=== PATIENT | male | born 1970 | race Caucasian/White ===

== ENCOUNTER 2020-05-07 06:43 | Observation (INO) | payer BC ==
--- OUTSIDE RECORDS SUMMARY | 2020-05-07 06:46 | XMS REPORT | Continuity of Care Document ---
:1970 Author Organization [facility] t Address [address] [place] [address] Care Team Providers Name Role Phone Unavailable Unavailable Unavailable Problems Condition Condition Condition Status Onset Resolution Last Treating Co mments Source Name Details Category Date Date Treatment Clinician Date Adult BMI Adult BMI Problem Active [facility] 37.0-37.9 37.0-37.9 Luke s - kg/sq m kg/sq m [facility] Insomnia, Insomnia, Problem Active [facility] unspecifie unspecifie Ina kes - d type d type [facility]oria l [facility] ent Clinics HTN, goal HTN, goal Diagnosis Active [facility] below [facility] - 140/90 140/90 [facility] ent Clinics Obstructiv Obstructiv Diagnosis Active [facility] e sleep e sleep [facility] - apnea apnea Memoria (adult) (adult) l (pediatric (pediatric Ou tpati ) ) ent Clinics Mixed Mixed Problem Active [facility] hyperlipid hyperlipid Ina kes - emia emia [facility]oria l [facility] ent Clinics Anxiety Anxiety Diagnosis [facility] Dependence Dependence Diagnosis Active [facility] on other on other [facility] - enabling enabling Memori a machines machines l and and [facility] devices ent Clinics GERD GERD Problem Active [facility] without without [facility] - esophagiti esophagiti Me moria s s l [facility] ent Clinics Family Family Problem Active [facility] history of history of Ina kes - prostate prostate Memori a cancer cancer l [facility] ent Clinics Tobacco Tobacco Problem Active [facility] use use [facility] - disorder disorder Memori a l [facility] Clinics Adult BMI Adult BMI Problem Active [facility] 40.0-44.9 40.0-44.9 Luke s - kg/sq m kg/sq m [facility] l [facility] ent Clinics 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 Medications Ordered Filled Start Stop Current Ordering Indication Dosage Frequency Signature Comments Components Source Medication Medication Date Date Medication? Clinician (SIG) Name Name Atenolol Atenolol Yes Delvin [address] [facility] Trazodone Trazodone Yes Delvin [address] [facility] HCl HCl Gray at bedtime [facility] - [facility] Chantix Chantix Yes Delvin [address] [facility] Continuing Continuing Gray Ina kes - Month Coleman Month Coleman Memor ia l [facility] ent [facility] Co Q 10 Co Q 10 Yes Delvin [address] [facility] Krill Oil Krill Oil Yes Delvin as [facility] Gray directed [facility] - [facility] Pravastatin Pravastatin Yes Delvin [address] [facility] Sodium Sodium Gray [facility] - [facility] Amitriptyli Amitriptyli Yes Delvin [address] [facility] ne HCl ne HCl [facility] Lisinopril- Lisinopril- Yes Delvin [address] [facility] Hydrochloro Hydrochloro Gray [facility] - thiazide thiazide [facility] l [facility] Lisinopril- Lisinopril- Yes Delvin [address] [facility] Hydrochloro Hydrochloro Gray [facility] - thiazide thiazide [facility] l [facility] Belsomra Belsomra Yes Delvin [address] [facility] at bedtime [facility] - as needed [facility] l [facility] Vitamin B Vitamin B Yes Delvin as [facility] 12 12 Gray directed [facility] CPAP CPAP Yes Delvin nightly [facility] Machine Machine Gray [facility] - [facility] Atenolol Atenolol Yes Delvin [address] [facility] l Outpati ent Clinics Immunizations Ordered Filled Immunization Date Status Comments Sour e Immunization Name Name Traci Aviles 2018-02-[address] [facility] - 00[facility]00 [facility] Pneumovax Pneumovax 2018-02-[address] [facility]00 [facility] Procedures This patient has no known procedures. Encounters Start End Encounter Admission Attending Care Care Encounter Source Date/Time Date/Time Type Type Clinicians Facility Department ID 2020-01-21 2020-01-21 [facility] [id number] [facility] 16:20:00 16:20:00 [facility] Medicine Medicine Outpati ent Clinics 2020-01-19 2020-01-19 [facility] [id number] [facility] 14:31:00 14:31:00 [facility] l Medicine Outpati ent Clinics 2019-08-06 2019-08-06 [facility] [id number] [facility] 08:24:00 08:24:00 [facility] Medicine Outpati ent Clinics 2019-08-04 2019-08-04 [facility] [id number] [address] 10:00:00 10:00:00 [facility] 2019-08-04 2019-08-04 [facility] [id number] [address] 08:35:00 08:35:00 [facility] Medicine Medicine Outpati ent Clinics 2019-08-03 2019-08-03 [facility] [id number] [address] 10:22:00 10:22:00 [facility] Medicine Medicine Outpati ent Clinics 2019-06-08 2019-06-08 [facility] [id number] 14:39:00 14:39:00 [facility] Medicine Medicine Outpati ent Clinics 2019-06-02 2019-06-02 [facility] [id number] 08:15:00 08:15:[address] [facility] Medicine Outpati ent Clinics 2019-04-21 2019-04-21 [facility] [id number] 08:15:00 08:15:[address] [facility] Medicine Outpati ent Clinics 2019-01-27 2019-01-27 [facility] [id number] [address] 08:00:00 08:00:[address] [facility] Medicine Outpati ent Clinics 2019-01-21 2019-01-21 [facility] [id number] [address] 09:18:00 09:18:[address] [facility] Medicine Outpati ent Clinics 2018-10-27 2018-10-27 [facility] [id number] 10:40:00 10:40:[address] [facility] Medicine Outpati ent Clinics 2018-10-23 2018-10-23 [facility] [id number] 10:30:00 10:30:[address] [facility] Medicine Outpati ent Clinics 2018-06-03 2018-06-03 [facility] [id number] 13:45:00 13:45:[address] [facility] Medicine Outpati ent Clinics 2018-02-11 2018-02-11 [facility] [id number] 11:00:00 11:00:[address] [facility] Medicine Outpati ent Clinics Results This patient has no known results.
[2020-05-07 07:02] LABS: Absolute Lymphocytes (CBC) 1.6 K/uL (0.7-4.9); Basophils % 0.6 % (0-1.3); Hematocrit 43.7 % (39.6-49.0); MPV 8.1 fL (7.6-11.3); RBC Red Blood Cell Count 5.03 M/uL (4.33-5.43)
[2020-05-07 07:19] LABS: Potassium 3.5 mmol/L (3.5-5.1)
[2020-05-07 07:38] LABS: Protime INR 0.94
[2020-05-07] MEDS ORDERED: NA CHLORIDE 0.9% 1,000 ML ONE (07:40)
[2020-05-07 07:44] LABS: ALT/SGPT 63 U/L (12-78); AST/SGOT 25 U/L (15-37); Albumin 3.6 g/dL (3.4-5.0); Alkaline Phosphatase 81 U/L (45-117); Bilirubin Direct < 0.1 mg/dL (0-0.2); Bilirubin Total 0.3 mg/dL (0.2-1.0); Magnesium 2.1 mg/dL (1.8-2.4); NT PRO-BNP 13 pg/mL (<125); Protein, Total 7.1 g/dL (6.4-8.2); Troponin (Emerg Dept Use Only) < 0.02 ng/mL (0.0-0.045)
[2020-05-07 07:46] LABS: Platelet Estimate ADEQ
[2020-05-07 07:47] LABS: Blood Morphology Comment NOT SEEN (NOT SEEN)
--- NOTE | 2020-05-07 08:14 | RAD REPORT ---
EXAM DESCRIPTION: CT - Head Brain Wo Cont - 05/07/2020 7:49 am CLINICAL HISTORY: Dizziness COMPARISON: None TECHNIQUE: Computed axial tomography of the head was obtained. IV contrast was not requested. All CT scans are performed using dose optimization technique as appropriate and may include automated exposure control or mA/KV adjustment according to patient size. FINDINGS: An intracranial bleed is not seen . The ventricles are normal in caliber. No extra-axial fluid collection is noted. Mild cerebellar tonsillar ectopia Fluid within the sinuses/ mastoids is not seen. IMPRESSION: No acute intracranial abnormality is seen. If patient's symptoms persist MRI of the bra in would be recommended.
--- NOTE | 2020-05-07 09:26 | RAD REPORT ---
EXAM DESCRIPTION: Keven Single View05/07/2020 8:07 am CLINICAL HISTORY: Syncope COMPARISON: 2016 FINDINGS: The lungs appear clear of acute infiltrate. The heart is normal size IMPRESSION: No acute abnormalities displayed
--- NOTE | 2020-05-07 10:35 | ER ---
Nurse's Notes [facility] Name: Corey Zamarripa Age: 50 yrs Sex: Male : 1970 Arrival Date: 05/07/2020 Time: 06:47 Bed 5 Private MD: Diagnosis: Syncope and collapse;Other chest pain;Essential (primary) hypertension;Tobacco use Presentation: 05/07 06:47 Chief complaint: EMS states: he has syncopal episode today \T\ 0600H while he was walking mg2 at home, felt dizzy and lightheaded initially and passed out, fell and hit his head on the frame. BGL- 140. he is complaining of pain in the head and left knee. Coronavirus screen: Client denies travel out of the [place] in the last 14 days. At this time, the client does not indicate any symptoms associated with coronavirus-19. Ebola Screen: No symptoms or risks identified at this time. Initial Sepsis Screen: Does the patient meet any 2 criteria? No. Patient's initial sepsis screen is negative. Does the patient have a suspected source of infection? No. Patient's initial sepsis screen is negative. Risk Assessment: Do you want to hurt yourself or someone else? Patient reports no desire to harm self or others. Onset of symptoms was May 03, 2020. 06:47 Method Of Arrival: EMS: [place] [id number] 06:47 Acuity: GAUDENCIO 3 mg2 Historical: - Allergies: 06:51 No Known Allergies; mg2 - Home Meds: 06:51 atenolol 25 mg Oral tab 1 tab 2 times per day [Active]; lisinopril 10 mg Oral tab 1 tab mg2 once daily [Active]; Pravachol 20 mg Oral tab 1 tab once daily [Active]; - PMHx: 06:51 Hyperlipidemia; Hypertension; mg2 - Immunization history:: Flu vaccine is up to date. - Social history:: Smoking status: Patient reports the use of cigarette tobacco products, smokes one-half pack cigarettes per day, Patient uses alcohol, Patient/guardian denies using street drugs, IV drugs. - Family history:: not pertinent. Screenin:55 Abuse screen: Denies threats or abuse. Denies injuries from another. Nutritional rr5 screening: No deficits noted. Tuberculosis screening: No symptoms or risk factors identified. Fall Risk IV access (20 points). Total Hogan Fall Scale indicates No Risk (0-24 pts). Assessment: 07:20 Reassessment: Received VO from Dr Ferguson for a cardiac workup, CT head/brain without sv contrast, NS\T\ 125 mls/hr. 07:25 General: Appears in no apparent distress. uncomfortable, Behavior is calm, cooperative, em appropriate for age, Reports being anxious. Pain: Complains of pain in right foot and medial aspect of left knee Pain currently is 4 out of 10 on a pain scale. Neuro: Level of Consciousness is awake, alert, obeys commands, Oriented to person, place, time, situation, Appropriate for age Reports dizziness. Cardiovascular: Capillary refill < 3 seconds Patient's skin is warm and dry. Rhythm is sinus rhythm. Respiratory: Reports shortness of breath on exertion Airway is patent Respiratory effort is even, unlabored, Respiratory pattern is regular, symmetrical. GI: Patient currently denies nausea. Derm: Skin is intact, is healthy with good turgor, Skin is pink, warm \T\ dry. Bruising that is dark purple, on medial aspect of left knee. Musculoskeletal: 07:44 Reassessment: pt wheeled to CT via stretcher. em 08:23 Reassessment: US recreation specialist and is unable to come out for US of gallbladder per Radiology. ss Dr. Turner notified. 08:41 Reassessment: Patient appears in no apparent distress at this time. Patient and/or em family updated on plan of care and expected duration. Pain level reassessed. Patient is alert, oriented x 3, equal unlabored respirations, skin warm/dry/pink. 10:00 Reassessment: Patient appears in no apparent distress at this time. Patient and/or em family updated on plan of care and expected duration. Pain level reassessed. Patient is alert, oriented x 3, equal unlabored respirations, skin warm/dry/pink. 11:00 Reassessment: Patient appears in no apparent distress at this time. Patient and/or em family updated on plan of care and expected duration. Pain level reassessed. Patient is alert, oriented x 3, equal unlabored respirations, skin warm/dry/pink. 12:00 Reassessment: Patient appears in no apparent distress at this time. Patient and/or em family updated on plan of care and expected duration. Pain level reassessed. Patient is alert, oriented x 3, equal unlabored respirations, skin warm/dry/pink. 13:07 Reassessment: Patient appears in no apparent distress at this time. Patient and/or em family updated on plan of care and expected duration. Pain level reassessed. Patient is alert, oriented x 3, equal unlabored respirations, skin warm/dry/pink. Patient states feeling better. 14:44 Reassessment: Dr. Shine at bedside. em Vital Signs: 06:47 BP 108 / 72; Pulse 80; Resp 18; Temp 97.1; Pulse Ox 94% on R/A; Weight 117.93 kg; mg2 Height 5 ft. 9 in. (175.26 cm); Pain 4/10; 07:12 BP 105 / 73; Pulse 81; Resp 18; Pulse Ox 94% ; sv 08:09 BP 102 / 70; Pulse 79; Resp 18; Pulse Ox 99% on R/A; em 09:00 BP 108 / 62; Pulse 91; Resp 15; Pulse Ox 97% ; sv 10:19 BP 111 / 66; Pulse 92; Resp 16; Pulse Ox 99% ; sv 11:15 BP 121 / 69; Pulse 86; Resp 22; Pulse Ox 96% on R/A; em 12:03 BP 109 / 65; Pulse 83; Resp 18; Pulse Ox 97% on R/A; Pain 4/10; em 13:21 BP 122 / 77; Pulse 84; Resp 21; Pulse Ox 98% ; sv 14:11 BP 129 / 76; Pulse 92; Resp 17; Pulse Ox 95% ; sv 14:53 BP 129 / 76; Pulse 81; Resp 18; Pulse Ox 99% on R/A; em 06:47 Body Mass Index 38.39 (117.93 kg, 175.26 cm) mg2 ED Course: 06:47 Patient arrived in ED. mg2 06:50 Triage completed. mg2 06:50 Arm band placed on. mg2 06:54 Maintain EMS IV. Dressing intact. Good blood return noted. Site clean \T\ dry. Gauge \T\ rr 5 site: G18 right hand. 06:55 Patient has correct armband on for positive identification. Bed in low position. Call rr5 light in reach. Side rails up X2. teletypesetter monitor on. Pulse ox on. NIBP on. 06:55 EKG done, by ED staff, reviewed by Pacheco Ferguson MD. rr5 07:10 Woody Willard, RN is Primary Nurse. em 07:50 CT Head Brain wo Cont In Process Unspecified. EDMS 08:07 XRAY Chest (1 view) In Process Unspecified. EDMS 08:15 Heath Turner MD is Attending Physician. prashant 09:04 Magnesium Sent. sv 09:04 LFT's Sent. sv 09:04 CBC with Diff Sent. sv 10:33 Unruly Soria MD is Hospitalizing Provider. prashant 15:20 No provider procedures requiring assistance completed. Patient admitted, IV remains in em place. Administered Medications: 07:31 Drug: NS 0.9% 1000 ml Route: IV; Rate: 125 ml/hr; Site: right hand; em 11:28 Drug: Aspirin Chewable Tablet 324 mg Route: PO; em 12:03 Follow up: Response: No adverse reaction em 11:31 Drug: Lovenox 100 mg Route: Sub-Q; Site: right lower abdomen; em 13:06 Follow up: Response: No adverse reaction em 11:39 Drug: Pepcid 20 mg Route: IVP; Site: right hand; em 13:06 Follow up: Response: No adverse reaction em 11:58 Drug: Ativan 0.5 mg Route: IVP; Site: right hand; em 13:08 Follow up: Response: No adverse reaction; Marked relief of symptoms em 13:56 Not Given (Physician Discretion): Lopressor (metoprolol TARTRATE) 50 mg PO once em Outcome: 10:35 Decision to Hospitalize by Provider. prashant 15:20 Admitted to Tele accompanied by tech, family with patient, via wheelchair, room 224, em with chart, Report called to ASHANTI Murphy 15:20 Condition: good 15:20 Instructed on the need for admit, Demonstrated understanding of instructions. 15:48 Patient left the ED. em Signatures: Dispatcher [employer] Xin Krause, RN Heath Tran MD MD cha Munoz, Edgar, RN Savannah Roach RN RN Jose Rafael Bautista RN RN [facility] Andrés Rose RN RN rr5
--- NOTE | 2020-05-07 10:35 | EDPHYS ---
Physician Documentation [facility] Name: Corey Zamarripa Age: 50 yrs Sex: Male : 1970 Arrival Date: 05/07/2020 Time: 06:47 Bed 5 Private MD: ED Physician Heath Turner HPI: 05/07 10:25 This 50 yrs old Male presents to ER via EMS with complaints of Dizziness. prashant 10:25 The patient presents with dizziness. prashant 10:25 The patient has shortness of breath at rest, with light activity. Onset: The prashant symptoms/episode began/occurred just prior to arrival, this morning. Duration: The symptoms are intermittent, with episodes lasting 30 second(s) at a time. The patient's shortness of breath is aggravated by coughing. The patient or guardian reports chest pain that is located primarily in the anterior chest wall, bilaterally. Onset: just prior to arrival, this morning. Context: occurred at home, occurred while the patient was after eating, coughing, cp, sob. Historical: - Allergies: 06:51 No Known Allergies; mg2 - Home Meds: 06:51 atenolol 25 mg Oral tab 1 tab 2 times per day [Active]; lisinopril 10 mg Oral tab 1 tab mg2 once daily [Active]; Pravachol 20 mg Oral tab 1 tab once daily [Active]; - PMHx: 06:51 Hyperlipidemia; Hypertension; mg2 - Immunization history:: Flu vaccine is up to date. - Social history:: Smoking status: Patient reports the use of cigarette tobacco products, smokes one-half pack cigarettes per day, Patient uses alcohol, Patient/guardian denies using street drugs, IV drugs. - Family history:: not pertinent. ROS: 10:25 Constitutional: Negative for fever, chills, and weight loss, Eyes: Negative for injury, prashant pain, redness, and discharge, ENT: Negative for injury, pain, and discharge, Neck: Negative for injury, pain, and swelling, Abdomen/GI: Negative for abdominal pain, nausea, vomiting, diarrhea, and constipation, Back: Negative for injury and pain, : Negative for injury, bleeding, discharge, and swelling, MS/Extremity: Negative for injury and deformity, Skin: Negative for injury, rash, and discoloration, Neuro: Negative for headache, weakness, numbness, tingling, and seizure. 10:25 Cardiovascular: Positive for chest pain, palpitations. 10:25 Respiratory: Positive for cough, shortness of breath, at rest. Exam: 10:25 Constitutional: This is a well developed, well nourished patient who is awake, alert, prashant and in no acute distress. Head/Face: Normocephalic, atraumatic. Eyes: Pupils equal round and reactive to light, extra-ocular motions intact. Lids and lashes normal. Conjunctiva and sclera are non-icteric and not injected. Cornea within normal limits. Periorbital areas with no swelling, redness, or edema. ENT: Nares patent. No nasal discharge, no septal abnormalities noted. Tympanic membranes are normal and external auditory canals are clear. Oropharynx with no redness, swelling, or masses, exudates, or evidence of obstruction, uvula midline. Mucous membranes moist. Neck: Trachea midline, no thyromegaly or masses palpated, and no cervical lymphadenopathy. Supple, full range of motion without nuchal rigidity, or vertebral point tenderness. No Meningismus. Chest/axilla: Normal chest wall appearance and motion. Nontender with no deformity. No lesions are appreciated. Cardiovascular: Regular rate and rhythm with a normal S1 and S2. No gallops, murmurs, or rubs. Normal PMI, no JVD. No pulse deficits. Abdomen/GI: Soft, non-tender, with normal bowel sounds. No distension or tympany. No guarding or rebound. No evidence of tenderness throughout. Back: No spinal tenderness. No costovertebral tenderness. Full range of motion. Male : Normal genitalia with no discharge or lesions. Skin: Warm, dry with normal turgor. Normal color with no rashes, no lesions, and no evidence of cellulitis. MS/ Extremity: Pulses equal, no cyanosis. Neurovascular intact. Full, normal range of motion. Neuro: Awake and alert, GCS 15, oriented to person, place, time, and situation. Cranial nerves II-XII grossly intact. Motor strength 5/5 in all extremities. Sensory grossly intact. Cerebellar exam normal. Normal gait. Psych: Awake, alert, with orientation to person, place and time. Behavior, mood, and affect are within normal limits. 10:25 Respiratory: the patient does not display signs of respiratory distress, Respirations: normal, Breath sounds: bronchial sounds, that are mild, are scattered, Respiratory rate: 16 Vital Signs: 06:47 BP 108 / 72; Pulse 80; Resp 18; Temp 97.1; Pulse Ox 94% on R/A; Weight 117.93 kg; mg2 Height 5 ft. 9 in. (175.26 cm); Pain 4/10; 07:12 BP 105 / 73; Pulse 81; Resp 18; Pulse Ox 94% ; sv 08:09 BP 102 / 70; Pulse 79; Resp 18; Pulse Ox 99% on R/A; em 09:00 BP 108 / 62; Pulse 91; Resp 15; Pulse Ox 97% ; sv 10:19 BP 111 / 66; Pulse 92; Resp 16; Pulse Ox 99% ; sv 11:15 BP 121 / 69; Pulse 86; Resp 22; Pulse Ox 96% on R/A; em 12:03 BP 109 / 65; Pulse 83; Resp 18; Pulse Ox 97% on R/A; Pain 4/10; em 13:21 BP 122 / 77; Pulse 84; Resp 21; Pulse Ox 98% ; sv 14:11 BP 129 / 76; Pulse 92; Resp 17; Pulse Ox 95% ; sv 14:53 BP 129 / 76; Pulse 81; Resp 18; Pulse Ox 99% on R/A; em 06:47 Body Mass Index 38.39 (117.93 kg, 175.26 cm) mg2 MDM: 08:15 Patient medically screened. prashant 10:30 Differential diagnosis: Anxiety Reaction asthma, Bronchitis CHF exacerbation, Chronic prashant Obstructive Pulmonary Disease abnormal EKG, congestive heart failure gastritis, pancreatitis, pneumonia, pulmonary embolus, stable angina, unstable angina, Myocardial Infarction pneumonia, Pulmonary Embolism reactive airway disease, Unstable Angina. Antibiotic administration: Not indicated. HEART Score: History: Slightly Suspicious (0), ECG: Normal (0), Age: > 45 and < 65 years (1), Risk Factors: > or = 3 Risk factors for atherosclerotic disease (2), [Hypercholesterolemia] [Hypertension] [Active Smoker] [+ Family HX] [Obesity] Troponin: < or = 1 x Normal Limit (0), Total Score = 0. Differential diagnosis: cardiac arrhythmia, CVA, generalized weakness, hypovolemia, idiopathic dizziness, near-syncope, sepsis, TIA. The patient was given aspirin in the Emergency Department. The patient's Wells Deep Vein Thrombosis Score was calculated as follows: Total Score: 0-2 Pts- Low Risk. The patient's pulmonary embolism risk score was calculated as follows: Total Score: 0-2 points. This patient was found to be at low risk for a pulmonary embolism by using the Well's assessment criteria. KARRI Risk Score: 1 - Three or more CAD risk factors, TOTAL SCORE = 1. Immunization status: Influenza vaccine: Not up to date. Data reviewed: vital signs, nurses notes, lab test result(s), EKG, radiologic studies, CT scan, plain films. 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 Test interpretation: by ED physician or midlevel provider: ECG, plain radiologic studies. 05/07 06:54 Order name: CBC with Manual Differential; Complete Time: 10:17 rr5 05/07 06:54 Order name: BMP; Complete Time: 10:17 rr5 05/07 07:20 Order name: CBC with Diff sv 05/07 07:20 Order name: LFT's sv 05/07 07:20 Order name: Magnesium sv 05/07 07:20 Order name: NT PRO-BNP; Complete Time: 10:17 sv 05/07 07:20 Order name: PT-INR; Complete Time: 10:17 sv 05/07 07:20 Order name: Troponin (emerg Dept Use Only); Complete Time: 10:17 sv 05/07 07:21 Order name: Liver (Hepatic) Function; Complete Time: 10:17 EDMS 05/07 07:21 Order name: Magnesium; Complete Time: 10:17 EDMS 05/07 10:53 Order name: Basic Metabolic Panel EDMS 05/07 10:53 Order name: Basic Metabolic Panel EDMS 05/07 10:53 Order name: CBC with Automated Diff EDMS 05/07 07:20 Order name: XRAY Chest (1 view); Complete Time: 10:17 sv 05/07 07:20 Order name: CT Head Brain wo Cont; Complete Time: 10:17 sv 05/07 10:24 Order name: CT Chest For PE Angio prashant 05/07 10:52 Order name: Echo with Doppler EDMS 05/07 10:53 Order name: CBC with Automated Diff EDMS 05/07 10:53 Order name: Lipid Profile EDMS 05/07 10:53 Order name: Lipid Profile EDMO 05/07 11:22 Order name: COVID-19 em 05/07 11:32 Order name: CT EDMO 05/07 13:11 Order name: CORONAVIRUS EDMO 05/07 13:56 Order name: SARS-COV-2 RT PCR EDMO 05/07 06:54 Order name: EKG - Nurse/Tech; Complete Time: 06:54 rr5 05/07 06:54 Order name: IV Saline Lock; Complete Time: 06:54 rr5 05/07 07:20 Order name: EKG; Complete Time: 07:21 sv 05/07 07:20 Order name: Cardiac monitoring; Complete Time: 07:22 sv 05/07 07:20 Order name: Labs collected and sent; Complete Time: 07:22 sv 05/07 07:20 Order name: O2 Per Protocol; Complete Time: 07:22 sv 05/07 07:20 Order name: O2 Sat Monitoring; Complete Time: 07:22 sv 05/07 10:53 Order name: EKG Electrocardiogram EDMO 05/07 10:53 Order name: EKG Electrocardiogram EDMO Administered Medications: 07:31 Drug: NS 0.9% 1000 ml Route: IV; Rate: 125 ml/hr; Site: right hand; em 11:28 Drug: Aspirin Chewable Tablet 324 mg Route: PO; em 12:03 Follow up: Response: No adverse reaction em 11:31 Drug: Lovenox 100 mg Route: Sub-Q; Site: right lower abdomen; em 13:06 Follow up: Response: No adverse reaction em 11:39 Drug: Pepcid 20 mg Route: IVP; Site: right hand; em 13:06 Follow up: Response: No adverse reaction em 11:58 Drug: Ativan 0.5 mg Route: IVP; Site: right hand; em 13:08 Follow up: Response: No adverse reaction; Marked relief of symptoms em 13:56 Not Given (Physician Discretion): Lopressor (metoprolol TARTRATE) 50 mg PO once em Disposition: 05/07/20 10:35 Hospitalization ordered by Unruly Soria for Observation. Preliminary diagnosis are Syncope and collapse, Other chest pain, Essential (primary) hypertension, Tobacco use. - Bed requested for Telemetry/MedSurg (observation). - Status is Observation. em - Condition is Fair. - Problem is new. - Symptoms have improved. Signatures: Dispatcher [employer] EDMO Xin Perrin, RN RN Piper Caceres RN Haeth Tafoya MD MD cha Munoz, Edgar, RN ASHANIT em Jose Rafael Bautista, RN RN [facility] Andrés Rose RN RN rr5 Corrections: (The following items were deleted from the chart) 07:28 07:21 CBC with Automated Diff ordered. EDMO EDMO 15:00 10:35 Hospitalization Ordered by Unruly Soria MD for Observation. Preliminary dw diagnosis is Syncope and collapse; Other chest pain; Essential (primary) hypertension; Tobacco use. Bed requested for Telemetry/MedSurg (observation). Status is Observation. Condition is Fair. Problem is new. Symptoms have improved. prashant 15:48 15:00 05/07/2020 10:35 Hospitalization Ordered by Unruly Soria MD for Observation. em Preliminary diagnosis is Syncope and collapse; Other chest pain; Essential (primary) hypertension; Tobacco use. Bed requested for Telemetry/MedSurg (observation). Status is Observation. Condition is Fair. Problem is new. Symptoms have improved. dw
[2020-05-07] MEDS ORDERED: ALPRAZOLAM 0.25 MG TABLET PO PRN (10:49)
--- NOTE | 2020-05-07 11:31 | RAD REPORT ---
EXAM DESCRIPTION: CT - Chest For Pe Angio - 05/07/2020 11:11 am CLINICAL HISTORY: Chest pain COMPARISON: None. TECHNIQUE: Dynamically enhanced axial 3 mm thick images of the chest were obtained during administra tion of <100> mL Isovue 370 IV contrast. Coronal and oblique reconstruction images were generated and reviewed. Exam utilizes a protocol for optimal evaluation of pulmonary arterial tree. Maximum intensity projections 3D imaging was utilized All CT scans are performed using dose optimization technique as appropriate and may include automated exposure control or mA/KV adjustment according to patient size. FINDINGS: A pulmonary embolus is not seen. A thoracic aortic aneurysm is not noted. A pleural effusion is not seen. A pericardial effusion is not seen. A lung consolidation is not present. Left gynecomastia IMPRESSION: Negative for a pulmonary embolism.
[2020-05-07] MEDS ORDERED: ASPIRIN 81 MG CHEWABLE TABLET ONE (11:34)
[2020-05-07] MEDS ORDERED: ENOXAPARIN 100 MG/ML SYR SQ ONE (11:34)
[2020-05-07] MEDS ORDERED: FAMOTIDINE 20 MG/2 ML VIAL IV ONE (11:35)
[2020-05-07] MEDS ORDERED: LORazepam 2 MG/ML VIAL ONE (11:53)
--- NOTE | 2020-05-07 14:05 | EKG ---
Test Date: 2020-05-07 Test Time: 06:49:11 Clothes Shaker: ELENO MEASUREMENT RESULTS: Intervals: Rate: 81 MN: 152 QRSD: 98 QT: 378 QTc: 439 [place]: P: 79 MN: 152 QRS: 77 T: 60 INTERPRETIVE STATEMENTS: Normal sinus rhythm Normal ECG Compared to ECG 03/04/2017 10:29:53 No significant changes Electronically Signed On 05-07-20 14:04:36 VERIFICATION REP by Eb Delgado
[2020-05-07 16:13] VITALS: BMI 37.8
--- NOTE | 2020-05-07 20:11 | CON ---
Date of Consultation: 05/07/2020 Reason For Consultation: Presyncope. History Of Present Illness: Mr. Zamarripa is a 50-year-old white male without any significant past medi germain history except for hypertension and dyslipidemia, for which he takes atenolol, lisinopril, and Pr avachol. He had a birthday alliance party last night and drank too much alcohol according to him. This morni ng while he was laying down, he got really short of breath. He stood up to go to the bathroom and woodward d a fainting spell, urinary incontinence, no tongue biting. Denied any chest pain, nausea, vomiting. He had diaphoresis. Denied any palpitation. Denied any fever, chills, or cough. He denied any tr auma. Past Medical History: As stated above. Allergies: NONE. Review of Systems: Negative. Social History: Positive for alcohol. Family History: Negative. Medications: As listed earlier. Physical Examination: Vital Signs: Stable. Afebrile. HEENT: Negative. Neck: Supple with no bruit. Chest: Clear. Cardiac: Regular rhythm and rate. No murmurs, gallops, or rubs. Abdomen: Benign. Extremities: No clubbing, cyanosis, or edema. Diagnostic Data: All normal. His EKG was normal. Chest x-ray is normal. Troponin is normal. Impression And Plan: Orthostatic hypotension causing syncope, probably secondary to severe alcohol i ntake. He does take atenolol and lisinopril. He has not taken those today. He takes Pravachol for his dyslipidemia. I am comfortable with him going home after being hydrated. He can certainly stay overnight just to be sure. I doubt that he had a seizure, although it is possible if it did happen a nd may be because of hypotension. I think it would be good to do an echocardiogram, an MPI, and an e vent monitor as an outpatient. I will make arrangements for that. LUCA/DONTRELL Voice ID: [id number] Report ID: [id number]
[2020-05-07] MEDS: Enoxaparin 120 MG/0.8 ML SYR SQ SCH (20:47)
[2020-05-07] MEDS: METOPROLOL TAR 50 MG TAB PO SCH (20:47)
[2020-05-07] MEDS: ACETAMINOPHEN 500 MG TAB PO PRN (20:48)
[2020-05-08 01:19] VITALS: O2SAT 98
[2020-05-08 05:55] LABS: Absolute Lymphocytes (CBC) 1.5 K/uL (0.7-4.9); Basophils % 0.6 % (0-1.3); Hematocrit 39.6 % (39.6-49.0); Lymphocytes % 24.1 % (15.3-44.8); MPV 8.6 fL (7.6-11.3); RBC Red Blood Cell Count 4.55 M/uL (4.33-5.43)
[2020-05-08 06:01] LABS: Potassium 3.9 mmol/L (3.5-5.1)
[2020-05-08 06:52] VITALS: TEMP 97.7
[2020-05-08] MEDS: ACETAMINOPHEN 500 MG TAB PO PRN (08:48)
[2020-05-08] MEDS: METOPROLOL TAR 50 MG TAB PO SCH (08:48)
[2020-05-08] MEDS: Enoxaparin 120 MG/0.8 ML SYR SQ SCH (08:48)
[2020-05-08] MEDS: lisinopriL 10 MG TAB PO SCH ×2 (08:48→08:52)
[2020-05-08 08:49] VITALS: BP 125/76
[2020-05-08] MEDS ORDERED: ASPIRIN EC 81 MG TAB PO SCH (09:00)
[2020-05-08] MEDS ORDERED: ENOXAPARIN 40 MG/0.4 ML SQ SCH (09:00)
--- NOTE | 2020-05-08 09:33 | P.HP ---
Certification for Inpatient Patient admitted to: Observation With expected LOS: <2 Midnights Patient will require the following post-hospital care: None Practitioner: I am a practitioner with admitting privileges, knowledge of patient current condition, hospital course, and medical plan of care. Services: Services provided to patient in accordance with Admission requirements found in Title 42 Section 412.3 of the Code of Federal Regulations Patient History Date of Service: 05/07/20 Reason for admission: Syncope and collapse History of Present Illness: Patient is a 50-year-old gentleman who came to the hospital after having a syncopal event. Patient states he woke up this morning and ate some breakfast. He had lay down a watched television when he suddenly got short of breath. He was not able to catch his breath and went to the restroom. When he came out he ended up collapsing onto the floor. His woke up and saw him lying on the floor. She states that he had tried to sit up and then passed out once again. 911 was called and EMS came out. Shortly before the EMS arrived he started coming around but he appeared to be really p.o. and looking right through her. His vital signs were fairly stable and his blood sugars were stable. He was brought into the emergency room or his initial lab workup was unremarkable. EKG was unremarkable as well. Patient does state that he was drinking the day prior but this morning he was doing okay. Spoke with Cardiology in their concern is that patient may have been dehydrated and ortho statics. His symptoms are concerning so we will watch him for observation. Allergies No Known Allergies Allergy (Unverified 03/04/17 12:10) Home Medications: Atenolol [Tenormin] 50 mg PO BID 05/07/20 Lisinopril/Hydrochlorothiazide [Lisinopril-Hctz 20-25 mg Tab] 1 each PO DAILY 05/07/20 Pravastatin Sodium 40 mg PO SEECOM 05/07/20 Trazodone [Desyrel] 150 mg PO BEDTIME 05/07/20 - Past Medical/Surgical History Has patient received pneumonia vaccine in the past: Yes Diabetic: No -: HTN -: Hyperlipidemia -: Tonsillectomy - Social History Smoking Status: Current every day smoker Alcohol use: Yes CD- Drugs: No Caffeine use: No Place of Residence: Home Review of Systems 10-point ROS is otherwise unremarkable Physical Examination - Vital Signs Temperature: 97.7 F Blood Pressure: 125/76 Pulse: 68 Respirations: 18 Pulse Ox (%): 98 - Physical Exam General: Alert, In no apparent distress, Oriented x3 HEENT: Atraumatic, PERRLA, Mucous membr. moist/pink, EOMI, Sclerae nonicteric Neck: Supple, 2+ carotid pulse no bruit, No LAD, Without JVD or thyroid abnormality Respiratory: Clear to auscultation bilaterally, Normal air movement Cardiovascular: Regular rate/rhythm, Normal S1 S2, No murmurs Gastrointestinal: Normal bowel sounds, Soft and benign, Non-distended, No tenderness Musculoskeletal: No clubbing, No swelling, No tenderness Integumentary: No rashes Neurological: Normal gait, Normal speech, Normal strength at 5/5 x4 extr, Normal tone, Sensation intact, Cranial nerves 3-12 intact, Normal affect Lymphatics: No axilla or inguinal lymphadenopathy - Studies Laboratory Data (last 24 hrs) 05/07/20 06:50: Triglycerides 185 H, Cholesterol 150, HDL Cholesterol 41, Cholesterol/HDL Ratio 3.66 Assessment & Plan - Problems (Diagnosis) (1) Syncope and collapse Current Visit: Yes Status: Acute - Plan 1. Serial troponins and EKG 2. Appreciate Cardiology consultation 3. Possibly outpatient echo and stress test 4. Anti-platelet therapy, anti coagulation, beta-rafael, statin, and O2 as needed 5. IV morphine for pain 6. Nitro p.r.n. Discharge Plan: Home Plan to discharge in: 24 Hours - Advance Directives Does patient have a Living Will: No Does patient have a Durable POA for Healthcare: No - Code Status/Comfort Care Code Status Assessed: Yes Code Status: Full Code Critical Care: No Time Spent Managing PTS Care (In Minutes): 45
--- NOTE | 2020-05-09 10:31 | EKG ---
Test Date: 2020-05-08 Test Time: 05:32:09 Certified Medical Technician: LAZARA MEASUREMENT RESULTS: Intervals: Rate: 62 [place]: 144 QRSD: 92 QT: 414 QTc: 420 [place]: P: 74 [place]: 144 QRS: 66 T: 60 INTERPRETIVE STATEMENTS: Normal sinus rhythm Normal ECG Compared to ECG 05/07/2020 06:49:11 No significant changes Electronically Signed On 05-09-20 10:28:03 UMBRELLA CUTTER by Eb Delgado
--- NOTE | 2020-05-09 22:05 | P.DS ---
Discharge Date: 05/08/20 Disposition: ROUTINE DISCHARGE Discharge Condition: GOOD Reason for Admission: Syncope and collapse Consultations: Delicatessen Goods Stock Clerk - Problems (1) Syncope and collapse Status: Acute Brief History of Present Illness: Patient is a 50-year-old gentleman who came to the hospital after having a syncopal event. Patient states he woke up this morning and ate some breakfast. He had lay down a watched television when he suddenly got short of breath. He was not able to catch his breath and went to the restroom. When he came out he ended up collapsing onto the floor. His woke up and saw him lying on the floor. She states that he had tried to sit up and then passed out once again. 911 was called and EMS came out. Shortly before the EMS arrived he started coming around but he appeared to be really p.o. and looking right through her. His vital signs were fairly stable and his blood sugars were stable. He was brought into the emergency room or his initial lab workup was unremarkable. EKG was unremarkable as well. Patient does state that he was drinking the day prior but this morning he was doing okay. Spoke with Cardiology in their concern is that patient may have been dehydrated and orthostatics. His symptoms are concerning so we will watch him for observation. Hospital Course: Patient's workup has been essentially unremarkable. Patient is clinically doing much better. His symptoms are pretty much improved. Patient did not have any arrhythmias on telemetry. Patient's cardiac workup has been essentially unremarkable. Possible orthostasis per cardiology. However, in light of comorbidities have advised patient to follow up with cardiology Saturday morning for further cardiac testing. Vital Signs/Physical Exam: Temp Pulse Resp BP Pulse Ox 97.7 F 68 18 125/76 98 05/08/20 09:34 05/08/20 09:34 05/08/20 09:34 05/08/20 09:34 05/08/20 09:34 General: Alert, In no apparent distress, Oriented x3 Laboratory Data at Discharge: WBC 6.3 K/uL (4.3-10.9) 05/08/20 05:26 Hgb 13.8 g/dL (13.6-17.9) 05/08/20 05:26 Hct 39.6 % (39.6-49.0) 05/08/20 05:26 Plt Count 165 K/uL (152-406) 05/08/20 05:26 PT 11.1 SECONDS (9.5-12.5) 05/07/20 06:50 INR 0.94 05/07/20 06:50 Sodium 141 mmol/L (136-145) 05/08/20 05:24 Potassium 3.9 mmol/L (3.5-5.1) 05/08/20 05:24 BUN 17 mg/dL (7-18) 05/08/20 05:24 Creatinine 1.08 mg/dL (0.55-1.3) 05/08/20 05:24 Glucose 96 mg/dL (74-106) 05/08/20 05:24 Magnesium 2.1 mg/dL (1.8-2.4) 05/07/20 06:50 Total Bilirubin 0.3 mg/dL (0.2-1.0) 05/07/20 06:50 AST 25 U/L (15-37) 05/07/20 06:50 ALT 63 U/L (12-78) 05/07/20 06:50 Alkaline Phosphatase 81 U/L (45-117) 05/07/20 06:50 Troponin I < 0.02 ng/mL (0.0-0.045) 05/08/20 09:13 Triglycerides 185 mg/dL (<150) H 05/07/20 06:50 Cholesterol 150 mg/dL (<200) 05/07/20 06:50 HDL Cholesterol 41 mg/dL (40-60) 05/07/20 06:50 Cholesterol/HDL Ratio 3.66 05/07/20 06:50 Home Medications: Atenolol [Tenormin] 50 mg PO BID 05/07/20 Lisinopril/Hydrochlorothiazide [Lisinopril-Hctz 20-25 mg Tab] 1 each PO DAILY 05/07/20 Pravastatin Sodium 40 mg PO SEECOM 05/07/20 Trazodone [Desyrel] 150 mg PO BEDTIME 05/07/20 Patient Discharge Instructions: OK TO DC IV AND DC HOME. FOLLOW-UP WITH PRIMARY CARE PROVIDER IN 1-2 WEEKS. FOLLOW-UP WITH CARDIOLOGY IN 1-2 WEEKS. RETURN TO THE ER IF symptoms worsen. CALL or TEXT DR. LEÓN AT [phone] IF ANY QUESTIONS REGARDING HOSPITAL STAY. PLEASE CALL THE FLOOR AT [phone] IF ANY MEDICATION OR NURSING QUESTIONS. Diet: AHA Activity: Fall precautions Followup: Eb Delgado MD [ACTIVE - CAN ADMIT] - Delvin Gray DO [Primary Care Provider] - Time spent managing pt's care (in minutes): 30
== END 2020-05-08 12:02 | disposition home or self-care (01) ==
LOC: ER 06:43 → ERHOLD 10:54 → 2ND 15:36
PROVIDERS: ADMIT Hospitalist; ATTEND Hospitalist
DX: R55 Syncope and collapse (principal); Z20.822 Contact with and (suspected) exposure to COVID-19; I10 Essential (primary) hypertension; E78.5 Hyperlipidemia, unspecified; F17.210 Nicotine dependence, cigarettes, uncomplicated
CPT/HCPCS: 36415; 70450; 71045; 71275; 80048; 80061; 80076; 83735; 83880; 84484; 85025; 85610; 93005; 96372; 96374; 96375; 99285; G0378; J1650; J7030; Q9967; U0003

== ENCOUNTER 2020-07-08 06:36 | Day surgery (SDC) | payer BC ==
[2020-07-06 10:36] LABS: Absolute Lymphocytes (CBC) 1.5 K/uL (0.7-4.9); Basophils % 0.7 % (0-1.3); Hematocrit 44.1 % (39.6-49.0); Lymphocytes % 20.8 % (15.3-44.8); MPV 9.3 fL (7.6-11.3); RBC Red Blood Cell Count 5.12 M/uL (4.33-5.43)
[2020-07-06 10:46] LABS: Potassium 4.3 mmol/L (3.5-5.1)
[2020-07-08] MEDS: Ringers Lactate 1,000 ML IV ONE ×2 (07:00→07:14)
[2020-07-08] MEDS ORDERED: LIDOCAINE 1% MPF 5 ML VIAL ONE (07:34)
[2020-07-08] MEDS ORDERED: propofoL 200 MG/20 ML VIAL IV ONE (07:34)
--- NOTE | 2020-07-08 07:56 | ENDO RPT ---
[address], [address] COLONOSCOPY PROCEDURE REPORT EXAM DATE: 07/08/2020 PATIENT NAME: Corey Zamarripa MR #: [id number] BIRTHDATE: 1970 ATTENDING: Ernie Ramsay M.D. STATUS: outpatient INSIDE ACCOUNT REPRESENTATIVE: Elise REDD and Elizabeth Corey CST INDICATIONS: The patient is a 50 yr old Male here for a colonoscopy due to colon cancer screening PROCEDURE PERFORMED: Colonoscopy MEDICATIONS: Per Anesthesia. ESTIMATED BLOOD LOSS: None CONSENT: The patient understands the risks and benefits of the procedure and understands that these risks include, but are not limited to: sedation, allergic reaction, infection, perforation and/or bleeding. Alternative means of evaluation and treatment include, among others: physical exam, x-rays, and/or surgical intervention. The patient elects to proceed with this endoscopic procedure. DESCRIPTION OF PROCEDURE: During intra-op preparation period all mechanical medical equipment was checked for proper function. Hand hygiene and appropriate measures for infection prevention was taken. Procedure, possible complications, alternatives including, but not limited to possibility of bleeding, perforation, tear, infection, sepsis, need for surgery, need for blood transfusion, were explained to the patient. After the risks, benefits and alternatives of the procedure were thoroughly explained, Informed consent was verified, confirmed and timeout was successfully executed by the treatment team. The patient was placed in the left lateral position. A digital rectal exam was performed and revealed no abnormalities of the rectum. After appropriate level of anesthesia, the scope was passed. The EC-[id number] ([id number]) endoscope was introduced through the anus and advanced to the cecum, which was identified by the ileocecal valve. The quality of the prep was good. The instrument was then slowly withdrawn as the colon was fully examined. Scope withdrawal time was 12 minutes. COLON FINDINGS: Diverticula was found in the sigmoid colon and descending colon. Retroflexed views revealed no abnormalities. The scope was then completely withdrawn from the patient and the procedure terminated. ADVERSE EVENTS: There were no complications. IMPRESSIONS: Diverticula in the sigmoid colon and descending colon RECOMMENDATIONS: 1. follow-up: office 1 week(s) 2. fiber rich diet 3. increase dietary water 4. no seeds in diet RECALL: Return in 10 year(s) Ernie Ramsay M.D. eSigned: Ernie Ramsay M.D. 07/08/2020 7:56 AM cc: CPT CODES: ICD9 CODES: PATIENT NAME: Corey Zamarripa MR#: [id number]
[2020-07-08 08:32] VITALS: TEMP 98.5
[2020-07-08 08:33] VITALS: BP 118/69; O2SAT 98
== END 2020-07-08 08:25 | disposition home or self-care (01) ==
LOC: OR 06:36
PROVIDERS: ATTEND Surgery
PROC: 0DJD8ZZ Inspection of Lower Intestinal Tract, Via Natural or Artificial Opening Endoscopic (ICD-10-PCS; principal; 2020-07-08 07:30)
DX: Z12.11 Encounter for screening for malignant neoplasm of colon (principal); K57.30 Diverticulosis of large intestine without perforation or abscess without bleeding; Z20.822 Contact with and (suspected) exposure to COVID-19
CPT/HCPCS: 85025; 80048; 36415; 45378; U0003; J2704; J7120